=== PATIENT | male | born 1990 ===

== ENCOUNTER 2021-07-22 14:24 | Emergency (ER) | payer SELFPAY ==
[2021-07-22] MEDS ORDERED: SODIUM CHLORIDE 0.9% 1000 ML 1,000 ML IV ONE (15:41)
[2021-07-22] MEDS ORDERED: MORPHINE 2 MG/1 ML INJ IV ONE (15:41)
[2021-07-22] MEDS ORDERED: ONDANSETRON 4 MG/2 ML INJ IV ONE (15:41)
--- NOTE | 2021-07-22 15:42 | Emergency Department Report ---
ED Abdominal Pain HPI - General Chief Complaint: Abdominal Pain Stated Complaint: RT SIDE PAIN Time Seen by Provider: 07/22/21 15:16 Source: patient Mode of arrival: Ambulatory Limitations: No Limitations - History of Present Illness Initial Comments: 32-year-old male who reports a past medical history of hypertension, presents to the ER today with complaints of right lower quadrant abdominal pain. Patient states that his pain started today around 2 PM while he was at work. Patient states that the pain was significantly intense and sharp in nature when it first started. He states it was a 10 out of 10 but currently is a 4 out of 10. He has not taken anything for the pain. He states that the pain seemed to improve when he lays down or when he put himself in a position. He denies any associated nausea vomiting. His last bowel movement was just prior to arrival and was normal. He denies any UTI symptoms, testicular pain or swelling or penile discharge. He denies any fever or chills. He denies any abdominal surgeries in the past. He states that he drinks alcohol occasionally. He denies any illicit drug use. MD Complaint: abdominal pain -: This afternoon Severity scale (0 -10): 8 - Related Data Home Medications Medication Instructions Recorded Confirmed Last Taken Metoprolol [Lopressor TAB] 50 mg PO QAM 07/22/21 07/22/21 07/22/21 50 mg Allergies Allergy/AdvReac Type Severity Reaction Status Date / Time No Known Allergies Allergy Verified 07/22/21 16:00 ED Review of Systems ROS: Stated complaint: RT SIDE PAIN Other details as noted in HPI Comment: All other systems reviewed and negative Constitutional: denies: chills, diaphoresis, fever, malaise, weakness Eyes: denies: eye pain, eye discharge, vision change ENT: denies: ear pain, throat pain Respiratory: denies: cough, shortness of breath, wheezing Cardiovascular: denies: chest pain, palpitations Gastrointestinal: abdominal pain. denies: nausea, vomiting, diarrhea, constipation, hematemesis, melena, hematochezia Genitourinary: denies: frequency, hematuria, discharge, testicular pain, testicular mass Musculoskeletal: denies: back pain, joint swelling, arthralgia, myalgia Skin: denies: rash, lesions, change in color, change in hair/nails, pruritus Neurological: denies: headache, weakness, numbness, paresthesias, confusion, abnormal gait, vertigo Psychiatric: denies: anxiety, depression, auditory hallucinations, visual hallucinations, homicidal thoughts, suicidal thoughts Hematological/Lymphatic: denies: easy bleeding, swollen glands ED Past Medical Hx - Medications Home Medications: Home Medications Medication Instructions Recorded Confirmed Last Taken Type Metoprolol [Lopressor TAB] 50 mg PO QAM 07/22/21 07/22/21 07/22/21 History 50 mg ED Physical Exam - General Limitations: No Limitations General appearance: alert, in no apparent distress - Respiratory Respiratory exam: Present: normal lung sounds bilaterally. Absent: respiratory distress, wheezes, rales, rhonchi - Cardiovascular Cardiovascular Exam: Present: regular rate, normal rhythm, normal heart sounds - GI/Abdominal GI/Abdominal exam: Present: soft, tenderness (Right lower quadrant). Absent: distended, guarding, rebound, rigid - Neurological Exam Neurological exam: Present: alert, oriented X3, CN II-XII intact, normal gait - Psychiatric Psychiatric exam: Present: normal affect, normal mood - Skin Skin exam: Present: intact ED Course Vital Signs 07/22/21 07/22/21 15:00 17:29 Temperature 97.7 F 98.9 F Pulse Rate 80 72 Respiratory 18 18 Rate Blood Pressure 129/90 123/75 [Right] O2 Sat by Pulse 97 99 Oximetry ED Medical Decision Making - Lab Data Result diagrams: 07/22/21 15:51 07/22/21 15:51 - Radiology Data Radiology results: report reviewed Patient: MARY SCOTT MR #: [id number] : 05/29/1989 Acct:[id number] Age/Sex: 32 / M A DM Date: 07/22/21 Loc: ED Attending Dr: Ordering Physician: MOOK ZELAYA Date of Service: 07/22/21 Procedure(s): CT abdomen pelvis w con Accession Number(s): [id number] cc: MOOK ZELAYA CT ABDOMEN AND PELVIS WITH CONTRAST INDICATION / CLINICAL INFORMATION: right lower quadrant pain. TECHNIQUE: Axial CT images were obtained through the abdomen and pelvis after 100 cc Omnipaque [address] scans at this location are performed using CT dose reduction for ALARA by means of automated exposure control. COMPARISON: None available. FINDINGS: LOWER CHEST: No significant abnormality. LIVER: No significant abnormality. GALLBLADDER: No significant abnormality. BILE DUCTS: No significant abnormality. PANCREAS: No significant abnormality. SPLEEN: No significant abnormality. ADRENALS: No significant abnormality. RIGHT KIDNEY / URETER: No significant abnormality. LEFT KIDNEY / URETER: No significant abnormality. STOMACH / SMALL BOWEL: No significant abnormality. COLON: No significant abnormality. APPENDIX: No significant abnormality. PERITONEUM: No free fluid. No free air. No fluid collection. LYMPH NODES: No significant adenopathy. AORTA / ARTERIES: No significant abnormality. IVC / VEINS: No significant abnormality. URINARY BLADDER: No significant abnormality. REPRODUCTIVE ORGANS: No significant abnormality. ADDITIONAL FINDINGS: None. SKELETAL SYSTEM: No significant abnormality. IMPRESSION: 1. No acute abnormality to account for patient's pain. Signer Name: Lindsay Ellington MD Signed: 07/22/2021 5:11 PM Workstation Name: [id number] Transcribed By: DB Dictated By: LINDSAY ELLINGTON MD Electronically Authenticated By: LINDSAY ELLINGTON MD Signed Date/Time: 07/22/211710 DD/ 06 TD/TT: - Medical Decision Making 32-year-old male who reports a past medical history of hypertension, presents to the ER today with complaints of right lower quadrant abdominal pain. Patient states that his pain started today around 2 PM while he was at work. Patient states that the pain was significantly intense and sharp in nature when it first started. He states it was a 10 out of 10 but currently is a 4 out of 10. He has not taken anything for the pain. He states that the pain seemed to improve when he lays down or when he put himself in a position. He denies any a ssociated nausea vomiting. His last bowel movement was just prior to arrival and was normal. He denies any UTI symptoms, testicular pain or swelling or penile discharge. He denies any fever or chills. He denies any abdominal surgeries in the past. He states that he drinks alcohol occasionally. He denies any illicit drug use. 1750: labs and Ct abdomen pelvis with IV contrast reviewed--work-up today does not show any significant abnormalities. Patient reports improvement of his pain after IV meds. He appears to be feeling better. He is nontoxic or ill-appearing. He was observed ambulating to the bathroom without any difficulty and a normal gait. His vital signs are stable. Discussed all results with patient. Exact cause of abdominal pain at this time unclear but I did recommend that he follows up with PCP and GI specialist especially if he continues. He understands to return to the ER if symptoms worsens. Patient was stable at time of discharge. - Differential Diagnosis Diverticulitis, appendicitis, UTI, kidney stone Critical care attestation.: If time is entered above; I have spent that time in minutes in the direct care of this critically ill patient, excluding procedure time. ED Disposition Clinical Impression: Right lower quadrant abdominal pain Disposition: 01 HOME / SELF CARE / HOMELESS Is pt being admited?: No Does the pt Need Aspirin: No Condition: Stable Instructions: Abdominal Pain, Adult, [id number] Additional Instructions: You can take Tylenol and ibuprofen as needed for pain. I do recommend following up with GI specialist especially if your symptoms persist may need a colonoscopy and/or endoscopy. Also follow-up with your primary care doctor either this week or next week. A GI specialist will be given to you on discharge instructions when you can call to set up an appointment. Return to the ER if symptoms worsens or changes in any way. Referrals: [facility] [Provider Group] - 3-5 Days Forms: Work/School Release Form(ED) Time of Disposition: 17:39
[2021-07-22 16:00] LABS: Basophils # (Auto) 0.1 K/mm3 (0.0-0.1); Basophils % (Auto) 0.7 % (0.0-1.8); Eosinophils # (Auto) 0.1 K/mm3 (0.0-0.4); Eosinophils % (Auto) 0.9 % (0.0-4.3); Hematocrit 43.5 % (35.5-45.6); Hemoglobin 14.6 gm/dl (11.8-15.2); Lymphocytes # (Auto) 2.1 K/mm3 (1.2-5.4); Lymphocytes % (Auto) 20.4 % (13.4-35.0); Mean Corpuscular HGB Conc 34 % (32-34); Mean Corpuscular Volume 92 fl (84-94); Monocytes # (Auto) 0.5 K/mm3 (0.0-0.8); Monocytes % (Auto) 4.5 % (0.0-7.3); Platelet Count 250 K/mm3 (140-440); Red Blood Count 4.74 M/mm3 (3.65-5.03); Red Cell Distribution Width 12.8 % (13.2-15.2)
[2021-07-22 16:15] LABS: Alanine Aminotransferase 57 units/L (7-56); Albumin 4.8 g/dL (3.9-5); BUN/Creatinine Ratio 12; Blood Urea Nitrogen 11 mg/dL (9-20); Calcium 9.8 mg/dL (8.4-10.2); Hemolysis Index 6
[2021-07-22 16:28] LABS: Bilirubin,Direct < 0.2 mg/dL (0-0.2)
[2021-07-22 17:08] LABS: Bilirubin,Urine NEG (Negative); Blood,Urine NEG (Negative); Color,Urine Yellow (Yellow); Protein,Urine <15 mg/dL mg/dL (Negative); RBC,Urine < 1.0 /HPF (0.0-6.0); Urobilinogen,Urine < 2.0 mg/dL (<2.0)
--- NOTE | 2021-07-22 17:16 | Cat Scan Report ---
CT ABDOMEN AND PELVIS WITH CONTRAST INDICATION / CLINICAL INFORMATION: right lower quadrant pain. TECHNIQUE: Axial CT images were obtained through the abdomen and pelvis after 100 cc Omnipaque [address] scans at this location are performed using CT dose reduction for ALARA by means of automated exposure control. COMPARISON: None available. FINDINGS: LOWER CHEST: No significant abnormality. LIVER: No significant abnormality. GALLBLADDER: No significant abnormality. BILE DUCTS: No significant abnormality. PANCREAS: No significant abnormality. SPLEEN: No significant abnormality. ADRENALS: No significant abnormality. RIGHT KIDNEY / URETER: No significant abnormality. LEFT KIDNEY / URETER: No significant abnormality. STOMACH / SMALL BOWEL: No significant abnormality. COLON: No significant abnormality. APPENDIX: No significant abnormality. PERITONEUM: No free fluid. No free air. No fluid collection. LYMPH NODES: No significant adenopathy. AORTA / ARTERIES: No significant abnormality. IVC / VEINS: No significant abnormality. URINARY BLADDER: No significant abnormality. REPRODUCTIVE ORGANS: No significant abnormality. ADDITIONAL FINDINGS: None. SKELETAL SYSTEM: No significant abnormality. IMPRESSION: 1. No acute abnormality to account for patient's pain. Signer Name: Kemal Ellington MD Signed: 07/22/2021 5:11 PM Workstation Name: [id number]
[2021-07-22 17:30] VITALS: BP 123/75
== END 2021-07-22 18:29 | disposition home or self-care (01) ==
LOC: ED 14:24
DX: R10.31 Right lower quadrant pain (principal)
CPT/HCPCS: 36415; 74177; 80048; 80076; 81001; 83690; 85025; 96361; 96374; 96375; 99284; J2270; J2405; J7030; Q9967; Q0162